=== PATIENT | female | born 1970 | race Caucasian/White ===

== ENCOUNTER → 2019-06-13 07:36 | Outpatient (CLI) | payer OTHER, SELFPAY ==
--- NOTE | 2019-06-13 07:38 | DI.MG.S_ITS ---
BILATERAL DIGITAL SCREENING MAMMOGRAM 3D/2D WITH CAD: 06/13/2019 CLINICAL: Routine screening. Comparison is made to exams dated: 01/10/2017 mammogram, 12/16/2015 mammogram, 12/09/2015 mammogram - [facility], 01/03/2018 mammogram, and 12/15/2017 mammogram - [facility]. There are scattered fibroglandular elements in both breasts. Current study was also evaluated with a Computer Aided Detection (CAD) system. There are grouped punctate calcifications in the superior medial right breast at middle to posterior depth which are stable to comparison exams dating back to 01/10/17, consistent with benignity. No significant masses, calcifications, or other findings are seen in either breast. There has been no significant interval change. IMPRESSION: There is no mammographic evidence of malignancy. A 1 year screening mammogram is recommended. This exam was interpreted at Station ID: [id number]. NOTE: For mammograms, a report in lay terms will be sent to the patient. Approximately 15% of breast malignancies will not be visualized mammographically. In the management of a palpable breast mass, a negative mammogram must not discourage biopsy of a clinically suspicious lesion. Electronically Signed By: Asif Kidd M.D. ecl/:06/14/2019 08:12:48 letter sent: Normal Exam ACR BI-RADS Category 2: Benign Finding(s) 3342F
[2019-06-13 08:53] LABS: Add Manual Diff / Slide Review NO; Basophils Absolute Auto 0 /uL (0-100); Basophils Percent Auto 0.5 % (0-2); Eosinophils Absolute Auto 100 /uL (0-450); Hematocrit 37.9 % (36-46); Hemoglobin 12.7 g/dL (12.0-16.0); Lymphocytes Absolute Auto 1900 /uL (1100-4500); Lymphocytes Percent Auto 33.8 % (25-40); Mean Corpuscular HGB Conc 33.5 % (30-36); Mean Corpuscular Hemoglobin 30.3 PG (26-34); Mean Corpuscular Volume 90.5 fL (80-100); Monocytes Absolute Auto 700 /uL (0-900); Monocytes Percent Auto 11.8 % (3-14); Neutrophils Absolute Auto 2900 /uL (1500-7000); Neutrophils Percent Auto 51.9 % (50-75); Platelet Count 253 X10^3/uL (150-400); Red Blood Cell Count 4.18 X10^6/uL (4.0-5.2); Red Cell Distribution Width 13.3 % (11.6-14.8); White Blood Cell Count 5.6 X10^3/uL (4.5-11.0)
[2019-06-13 09:20] LABS: Alanine Aminotransferase 16 IU/L (9-52); Albumin 4.2 g/dL (3.5-5.0); Albumin Globulin Ratio 1.3 (1.0-2.8); Alkaline Phosphatase 42 U/L (38-126); Aspartate Aminotransferase 22 IU/L (14-36); Bilirubin Total 0.5 mg/dL (0.2-1.3); Blood Urea Nitrogen 14 mg/dL (7-17); Calcium 9.8 mg/dL (8.4-10.2); Carbon Dioxide 29 mmol/L (22-32); Chloride 101 mmol/L (98-107); Cholesterol 178 mg/dL (140-199); Estimated Glomerular Filt Rate > 60.0 mL/min (>60); Globulin 3.3 g/dL (1.7-4.1); Glucose 103 mg/dL (70-100); HDL Cholesterol 39 mg/dL (40-60); HEMOLYSIS < 15 (0-50); LDL Cholesterol Calculated 114 mg/dL (<100); Potassium 4.4 mmol/L (3.4-5.1); Sodium 140 mmol/L (137-145); Total Protein 7.5 g/dL (6.3-8.2); Triglycerides 127 mg/dL (35-150)
[2019-06-13 09:52] LABS: Thyroid Stimulating Hormone 3.73 uIU/mL (0.47-4.68)
[2019-06-13 10:20] LABS: Appearance Urine UA CLEAR; Bilirubin Urine UA NEGATIVE (NEGATIVE); Color Urine UA YELLOW; Glucose Urine UA NEGATIVE (Negative); Ketones Urine UA NEGATIVE (NEGATIVE); Leukocyte Esterase Urine UA NEGATIVE (NEGATIVE); Nitrite Urine UA NEGATIVE (Negative); Occult Blood Urine UA NEGATIVE (Negative); Protein Urine UA NEGATIVE (Negative); Specific Gravity Urine UA <=1.005 (1.000-1.035); Urobilinogen Urine UA 0.2 E.U./dL (0.2); pH Urine UA 6.5 (4.5-8.0)
== END ==
PROVIDERS: Visit Provider Family Medicine
DX: Z12.31 Encounter for screening mammogram for malignant neoplasm of breast (principal); Z13.220 Encounter for screening for lipoid disorders; Z51.81 Encounter for therapeutic drug level monitoring
CPT/HCPCS: 36415; 77063; 77067; 80053; 80061; 81003; 84443; 85025

== ENCOUNTER → 2021-01-05 07:35 | Outpatient (ROUT) | payer OTHER, SELFPAY ==
[2021-01-05 08:33] LABS: Estimated Glomerular Filt Rate > 60.0 mL/min (>60)
== END ==
PROVIDERS: PCP Family Medicine; Visit Provider Physician Assistant
DX: L70.0 Acne vulgaris (principal); D22.5 Melanocytic nevi of trunk; L82.1 Other seborrheic keratosis; L81.4 Other melanin hyperpigmentation; D18.01 Hemangioma of skin and subcutaneous tissue
CPT/HCPCS: 82565

== ENCOUNTER → 2021-02-12 14:50 | Outpatient (CLI) | payer OTHER, SELFPAY ==
--- NOTE | 2021-02-12 14:51 | DI.MG.S_ITS ---
BILATERAL DIGITAL SCREENING MAMMOGRAM 3D/2D WITH CAD: 02/12/2021 CLINICAL: Routine screening. Comparison is made to exams dated: 06/13/2019 mammogram - [facility], 01/03/2018 mammogram, 12/15/2017 mammogram - [facility], and 01/10/2017 mammogram - [facility]. There are scattered fibroglandular elements in both breasts. Current study was also evaluated with a Computer Aided Detection (CAD) system. There are benign calcifications in the right breast. No significant masses, calcifications, or other findings are seen in either breast. There has been no significant interval change. IMPRESSION: BENIGN There is no mammographic evidence of malignancy. A 1 year screening mammogram is recommended. This exam was interpreted at Station ID: [id number]. NOTE: For mammograms, a report in lay terms will be sent to the patient. Approximately 15% of breast malignancies will not be visualized mammographically. In the management of a palpable breast mass, a negative mammogram must not discourage biopsy of a clinically suspicious lesion. Electronically Signed By: Hilton Hoffmann M.D., jr/yoko:02/12/2021 16:26:59 letter sent: Normal Exam ACR BI-RADS Category 2: Benign Finding(s) 3342F
== END ==
PROVIDERS: PCP Family Medicine; Referring Provider Obstetrics & Gynecology; Visit Provider Obstetrics & Gynecology
DX: Z12.31 Encounter for screening mammogram for malignant neoplasm of breast (principal)
CPT/HCPCS: 77063; 77067

== ENCOUNTER → 2022-01-26 09:15 | Outpatient (CLI) | payer OTHER, SELFPAY ==
--- NOTE | 2022-01-26 | DI.RAD.S_ITS ---
PROCEDURE: FL UPPER GI W AIR INDICATIONS: PROGRESSIVE GERD COMPARISON: None. 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 No suspicious abdominal calcifications. Visualized solid organ contours appear normal. Bony structures appear unremarkable. Esophagus: Esophageal mucosa is normal on air-contrast views. On single-contrast views, there is normal esophageal peristalsis. No strictures, extrinsic mass effects, or diverticula. No hiatal hernia. Gastroesophageal reflux was noted during the study which occurred without provocative maneuvers. A few, small tertiary contraction waves noted in the distal esophagus. There is normal transit of a calibrated barium tablet through the esophagus. Stomach: The stomach is normally distensible, with normal rugal fold thickness. No mucosal masses or ulcers. Pylorus and duodenal bulb appear normal in morphology. Duodenal folds are normal in thickness as well. 2.6 centimeter diverticulum involving the medial margin of the 2nd portion the duodenum. IMPRESSION: 1. Mild distal esophageal dysmotility. 2. Gastroesophageal reflux. 3. Small duodenal diverticulum. Dictated by: Sayra Peter MD, PhD on 01/26/2022 at 10:35 Approved by: Sayra Peter MD, PhD on 01/26/2022 at 10:37
--- NOTE | 2022-01-26 09:16 | DI.RAD.S_ITS ---
PROCEDURE: XR CHEST 2V INDICATIONS: granuloma right lung TECHNIQUE: 2 views of the chest were acquired. COMPARISON: [facility], , CHEST 2 VIEW, 06/16/2017, 18:34. FINDINGS: Surgical changes and devices: None. Lungs and pleura: Redemonstrated calcified granuloma in the right upper lung zone. No consolidation, pleural effusions or pneumothorax. Mediastinum: Mediastinal contours are normal. Heart size is normal. Bones and chest wall: No suspicious bony abnormalities. Soft tissues appear unremarkable. IMPRESSION: No acute cardiopulmonary abnormality. Dictated by: Gerald Leonard M.D. on 01/26/2022 at 10:45 Approved by: Gerald Leonard M.D. on 01/26/2022 at 10:46
== END ==
PROVIDERS: PCP Family Medicine; Referring Provider Family Medicine; Visit Provider Family Medicine
DX: R93.89 Abnormal findings on diagnostic imaging of other specified body structures (principal); K21.00 Gastro-esophageal reflux disease with esophagitis, without bleeding; K22.4 Dyskinesia of esophagus; N32.3 Diverticulum of bladder; J98.4 Other disorders of lung
CPT/HCPCS: 71046; 74240; 74246; 74248

== ENCOUNTER → 2022-04-20 12:59 | Outpatient (CLI) | payer OTHER, SELFPAY ==
[2022-04-20 14:42] LABS: COVID19 -Nasal RAPID Negative (Negative)
== END ==
PROVIDERS: PCP Family Medicine; Visit Provider Surgery
DX: Z20.822 Contact with and (suspected) exposure to COVID-19 (principal); Z01.812 Encounter for preprocedural laboratory examination
CPT/HCPCS: 87635; C9803

== ENCOUNTER 2022-04-21 10:26 | Day surgery (SDC) | payer OTHER, SELFPAY ==
[2022-04-21 10:55] VITALS: BMI 31.8
[2022-04-21 11:05] VITALS: BP 138/90; PULSE 92; RESP 16; TEMP 36.7; O2SAT 96
[2022-04-21] MEDS: LACTATED RINGERS 1,000 ML 42 ML IV (11:05)
--- NOTE | 2022-04-21 11:16 | PM.HP.1 ---
History of Present Illness History of Present Illness Date Patient Seen: 04/21/22 Time Patient Seen: 11:16 Chief complaint: SDC Narrative: 51-year-old woman here for colonoscopy for colon cancer screening. She has never had one before. She is no known family history of colon cancer. Patient History Medical History (Updated 04/21/22 @ 11:16 by Espinoza Flynn MD) Contact dermatitis GERD (gastroesophageal reflux disease) Granulomatous lung disease Preventative health care Tick bite (01/2020) Surgical History History of bilateral salpingo-oophorectomy (BSO) Status post appendectomy Status post endometrial ablation Status post laparoscopic cholecystectomy Status post tonsillectomy and adenoidectomy Family & Social History Family History Father Heart disease Mother Age: 76 Hypertension High cholesterol Grandfather Heart disease Grandmother Heart disease Sister Age: 56 High cholesterol Social History: household members spouse Tobacco & Substance use: Smoking Status Never smoker alcohol intake current alcohol intake frequency a few times a week Substance Use Type does not use Meds Home Medications and Allergies Home Medications Medication Instructions Recorded Confirmed Type aspirin 81 mg tablet,delayed 81 mg PO DAILY 07/26/21 04/21/22 History release pantoprazole 40 mg tablet,delayed 40 mg PO DAILY #90 tabs 11/09/21 04/21/22 Rx release hydroxyzine HCl 25 mg tablet 12.5 mg PO BEDTIME 02/11/22 04/21/22 History estradiol-norethindrone acet 1 1 tab PO DAILY 04/21/22 04/21/22 History mg-0.5 mg tablet loratadine 10 mg tablet 10 mg PO DAILY PRN Allergic 04/21/22 04/21/22 History Reaction Allergies Allergy/AdvReac Type Severity Reaction Status Date / Time hydrocodone [HYDROCODONE] Allergy Severe (FROM Verified 04/21/22 10:48 VICODIN) ITCHING benzoyl peroxide Allergy Unknown SWELLING Verified 04/21/22 10:48 [BENZOYL PEROXIDE] Exam Vital Signs (past 8 hours): - 04/21/22 11:05 Temperature 98.1 F Pulse Rate 92 H Respiratory Rate 16 Blood Pressure 138/90 Pulse Oximetry 96 Oxygen Delivery Method Room Air Oxygen Delivery Method Room Air Const General: healthy appearing Chest Chest: normal inspection of the chest Assessment & Plan Assessment and plan (1) Colon cancer screening: Status: Acute Plan 51-year-old woman here for colon cancer screening. We reviewed the risks and benefits of colonoscopy and she would like to proceed. Time Spent With Patient Critical Care time: I spent a total of [] minutes of critical care time on this patient's care today; this time is exclusive of procedural time.
[2022-04-21] MEDS: MIDAZOLAM 5 MG/5 ML VIAL IV ×2 (11:19→11:44)
--- NOTE | 2022-04-21 11:46 | PM.OP.COLON ---
Operative Date/Time/Diagnoses Date of procedure: 04/21/22 Time of procedure: 11:46 Pre-op diagnosis: Colon cancer screening Post-op diagnosis: same Procedure & Clinicians Study performed: Colonoscopy Same procedure as scheduled: Yes Surgeon: Espinoza Flynn Procedure Notes Procedure in detail: Surgeon: Espinoza Flynn MD Procedure: The patient was brought to the endoscopy suite, placed in left lateral decubitus position. The patient was connected to monitoring devices. A time-out was performed. Sedation was administered. Once the patient was adequately sedated, a digital rectal exam was performed and was normal. The scope was then inserted and advanced to the cecum where the appendiceal orifice was identified and photographed. The scope was then slowly withdrawn over greater than 6 minutes. The mucosa was thoroughly inspected. No polyps were noted. The scope was retroflexed in the rectum. There were some mild internal hemorrhoids but no other abnormalities. The scope was straightened and removed. The patient was awakened and brought to recovery. Versed: 6 mg Fentanyl: 150 mcg EBL: 0 Findings: Normal colon Scope withdrawal time: 6 Sedation minutes: 17 Post-procedure Recommendations: Colonoscopy in 10 years Disposition: PACU
[2022-04-21] MEDS: fentaNYL 250 MCG/5 ML INJ 175 MCG IV (11:47)
[2022-04-21 11:50] VITALS: BP 110/75; PULSE 88; RESP 15; TEMP 36.7; O2SAT 98
[2022-04-21 11:55] VITALS: BP 115/66; PULSE 76; RESP 16; O2SAT 96
[2022-04-21 12:00] VITALS: BP 115/66; PULSE 84; RESP 16; O2SAT 100
[2022-04-21 12:05] VITALS: BP 107/68; PULSE 74; RESP 16; O2SAT 100
--- NOTE | 2022-04-21 12:07 | SUR.PHASEII ---
1200: Pt A&Ox4, denies any distress and ready to discharge home. Discharge instructions reviewed with wit patient and time allowed for questions. Pt dressed independently and left unit via w/c with all personal belongings to ER exit where spouse will transport pt home.
--- NOTE | 2022-04-21 12:13 | SUR.PHASEII ---
04/21/[id number] met criteria. iv out. dressed self. pt has cellphone and states all belongings.Discharged via wheelchair to ride escorted by volunteer .
== END 2022-04-21 12:12 | disposition home or self-care (01) ==
PROVIDERS: PCP Family Medicine; Referring Provider Surgery; Visit Provider Surgery
PROC: 0DJD8ZZ Inspection of Lower Intestinal Tract, Via Natural or Artificial Opening Endoscopic (ICD-10-PCS; CPT 45378; principal; 2022-04-21 11:30)
DX: Z12.11 Encounter for screening for malignant neoplasm of colon (principal); K64.8 Other hemorrhoids
CPT/HCPCS: 45378; 99152; J2250; J3010

== ENCOUNTER → 2022-10-25 16:29 | Outpatient (CLI) | payer OTHER, SELFPAY ==
[2022-10-25 16:58] LABS: Hemoglobin 12.1 g/dL (12.0-16.0); Mean Corpuscular HGB Conc 34.5 % (30-36); Mean Corpuscular Hemoglobin 30.2 PG (26-34); Mean Corpuscular Volume 87.6 fL (80-100); Platelet Count 287 X10^3/uL (150-400); Red Blood Cell Count 3.99 X10^6/uL (4.0-5.2); Red Cell Distribution Width 13.9 % (11.6-14.8); White Blood Cell Count 8.6 X10^3/uL (4.5-11.0)
[2022-10-25 17:05] LABS: Appearance Urine UA CLEAR; Bilirubin Urine UA NEGATIVE (NEGATIVE); Color Urine UA YELLOW; Glucose Urine UA NEGATIVE (Negative); Ketones Urine UA NEGATIVE (NEGATIVE); Leukocyte Esterase Urine UA NEGATIVE (NEGATIVE); Nitrite Urine UA NEGATIVE (Negative); Occult Blood Urine UA TRACE-INTACT (Negative); Protein Urine UA NEGATIVE (Negative); Urobilinogen Urine UA 0.2 E.U./dL (0.2)
[2022-10-25 17:13] LABS: Bacteria Urine None Seen; RBC Urine 0-1/HPF (0-5/HPF); Squamous Epithelial Cell Urine 0-1 /HPF (0-5/HPF); WBC Urine 0-1/HPF (0-5/HPF)
[2022-10-25 17:17] LABS: BUN Creatinine Ratio 18.5 (6-22); Blood Urea Nitrogen 12 mg/dL (7-17); Calcium 8.9 mg/dL (8.4-10.2); Carbon Dioxide 26 mmol/L (22-32); Chloride 103 mmol/L (98-107); Estimated Glomerular Filt Rate > 60 mL/min (>60); Glucose 91 mg/dL (70-100); HEMOLYSIS < 15 (0-50); Potassium 4.3 mmol/L (3.4-5.1); Sodium 135 mmol/L (137-145)
== END ==
PROVIDERS: PCP Family Medicine; Referring Provider Nurse Practitioner Family; Visit Provider Nurse Practitioner Family
DX: R10.32 Left lower quadrant pain (principal); Z00.00 Encounter for general adult medical examination without abnormal findings; R31.9 Hematuria, unspecified
CPT/HCPCS: 36415; 80048; 81001; 85027; 87086

== ENCOUNTER → 2022-11-05 09:53 | Outpatient (CLI) | payer OTHER, SELFPAY ==
--- NOTE | 2022-11-05 09:54 | DI.MG.S_ITS ---
BILATERAL DIGITAL SCREENING MAMMOGRAM 3D/2D WITH CAD: 11/05/2022 CLINICAL: Routine screening. Comparison is made to exams dated: 02/12/2021 mammogram, 06/13/2019 mammogram - [facility], and 01/03/2018 mammogram - [facility]. There are scattered areas of fibroglandular density in both breasts (category b / 25%-50% glandular tissue). Current study was also evaluated with a Computer Aided Detection (CAD) system. There are benign calcifications in both breasts. No significant masses, calcifications, or other findings are seen in either breast. There has been no significant interval change. IMPRESSION: BENIGN There is no mammographic evidence of malignancy. A 1 year screening mammogram is recommended. Based on the Tyrer Cuzick model (a risk assessment model) the patient's lifetime risk is 4.8% and her 10 year risk is 1.4%. According to the ACR, ACS, and NCCN guidelines, an annual breast MRI exam along with mammogram is recommended if the patient's lifetime risk is 20% or greater. This exam was interpreted at Station ID: [id number]. NOTE: For mammograms, a report in lay terms will be sent to the patient. Approximately 15% of breast malignancies will not be visualized mammographically. In the management of a palpable breast mass, a negative mammogram must not discourage biopsy of a clinically suspicious lesion. Electronically Signed By: Rik burns/yoko:11/07/2022 02:28:20 letter sent: Normal Exam ACR BI-RADS Category 2: Benign Finding(s) 3342F
== END ==
PROVIDERS: PCP Family Medicine; Referring Provider Family Medicine; Visit Provider Family Medicine
DX: Z12.31 Encounter for screening mammogram for malignant neoplasm of breast (principal)
CPT/HCPCS: 77063; 77067

== ENCOUNTER → 2022-11-24 07:40 | Outpatient (CLI) | payer OTHER, SELFPAY ==
--- NOTE | 2022-11-24 07:45 | DI.US.S_ITS ---
PROCEDURE: US ABDOMEN COMPLETE INDICATIONS: LLQ PAIN HELD URINE FOR TOO LONG TECHNIQUE: Real-time scanning was performed of the abdominal and retroperitoneal organs, with image documentation. COMPARISON: None. FINDINGS: Liver: The liver is normal size and mildly diffusely hyperechoic in echotexture. No discrete mass. Gallbladder: The gallbladder is surgically absent. Biliary ducts: Intrahepatic bile ducts are non-dilated. Extrahepatic bile duct caliber measures 7.5 mm. Normal is 6-7 mm or less in diameter, or 10 mm or less post-cholecystectomy. Pancreas: The proximal pancreas is within normal limits. The tail is obscured by bowel gas. Spleen: Spleen is normal in size and homogeneous in echotexture. Kidneys: Kidneys are normal in size and echotexture. Right kidney measures 9.8 cm long; left kidney measures 8.9 cm long. No hydronephrosis or nephrolithiasis. No solid masses. Aorta: Visualized aorta is normal in caliber at less than 3 cm. Iliacs: Proximal common iliac arteries are normal in caliber at less than 2.5 cm. IVC: Intrahepatic inferior vena cava is patent. Miscellaneous: No free abdominal fluid. IMPRESSION: 1. Mild hepatic steatosis or other intrinsic liver disease. Correlate with LFTs to determine clinical significance. 2. Cholecystectomy. 3. No evidence of hydronephrosis. Dictated by: Rosa Torres M.D. on 11/24/2022 at 10:13 Approved by: Rosa Torres M.D. on 11/24/2022 at 10:16
--- NOTE | 2022-11-24 07:45 | DI.US.S_ITS ---
PROCEDURE: US PELVIC COMPLETE INDICATIONS: LLQ PAIN HX OF RIGHT OVARY REMOVAL TECHNIQUE: Real-time scanning was performed of the pelvic organs, with image documentation. Additional endovaginal scanning was necessary due to incomplete visualization of the adnexal and endometrial structures by transabdominal scanning. COMPARISON: [facility], US, PELVIC COMPLETE, 12/15/2011, 17:03. FINDINGS: Uterus: Uterus is anteverted and normal in size at 8.1 x 3.6 x 4.5 cm. The cervix contains a few small nabothian cysts. The myometrium is heterogeneous and the endometrial margin is indistinct. The endometrium is normal thickness at 5.2 mm. No myometrial masses. There is mildly prominent periuterine vasculature. Ovaries: The right ovary is surgically absent. The left ovary measures 1.7 x 1.3 x 1.9 cm for a volume of 2.3 mL. Normal vascular flow in the left ovary. No discrete mass or dominant follicle. No paraovarian fluid. Other: No pathologic free abdominal or pelvic fluid. IMPRESSION: 1. Normal appearing left ovary. 2. Diffusely heterogeneous uterine myometrium with indistinct endometrium. Morphology is suspicious for adenomyosis. MR imaging of the pelvis would be diagnostic if this would be clinically relevant. 3. Mildly prominent uterine vasculature raising the possibility of pelvic congestion syndrome. We strive to produce accurate, complete, and clear reports of imaging services. To assist us in improving patient care, this report was composed using standard report templates and voice recognition software. Therefore, it may contain abnormal punctuation, insertions and/or omissions. Occasional wrong-word or sound-alike substitutions may occur. Though we review the report and make efforts to correct it, we do recommend that the report be read carefully in proper context to recognize any text inaccuracies. Dictated by: Rosa Torres M.D. on 11/24/2022 at 10:09 Approved by: Rosa Torres M.D. on 11/24/2022 at 10:13
== END ==
PROVIDERS: PCP Family Medicine; Referring Provider Nurse Practitioner Family; Visit Provider Nurse Practitioner Family
DX: R10.32 Left lower quadrant pain (principal); Z90.721 Acquired absence of ovaries, unilateral; Z90.49 Acquired absence of other specified parts of digestive tract
CPT/HCPCS: 76700; 76830; 76856; 93976

== ENCOUNTER → 2022-11-30 09:19 | Outpatient (CLI) | payer OTHER, SELFPAY ==
[2022-11-30 11:41] LABS: Alanine Aminotransferase 39 IU/L (<35); Albumin 4.3 g/dL (3.5-5.0); Albumin Globulin Ratio 1.3 (1.0-2.8); Alkaline Phosphatase 60 U/L (38-126); Aspartate Aminotransferase 29 IU/L (14-36); Bilirubin Total 0.5 mg/dL (0.2-1.3); Bilirubin Unconjugated 0.1 mg/dL (0.0-1.1); Globulin 3.2 g/dL (1.7-4.1); HEMOLYSIS < 15 (0-50); Total Protein 7.5 g/dL (6.3-8.2)
[2022-11-30 12:17] LABS: TSH w/ Reflex to FT4 3.65 uIU/mL (0.47-4.68)
== END ==
PROVIDERS: PCP Family Medicine; Referring Provider Nurse Practitioner Family; Visit Provider Nurse Practitioner Family
DX: R93.2 Abnormal findings on diagnostic imaging of liver and biliary tract (principal); R30.9 Painful micturition, unspecified
CPT/HCPCS: 36415; 80076; 84443; 87086

== ENCOUNTER → 2023-11-30 08:09 | Outpatient (CLI) | payer OTHER, SELFPAY ==
[2023-11-30 08:27] LABS: Add Manual Diff / Slide Review NO; Basophils Absolute Auto 0 /uL (0-100); Basophils Percent Auto 0.7 % (0-2); Eosinophils Absolute Auto 100 /uL (0-450); Eosinophils Percent Auto 2.1 % (2-4); Hematocrit 39.3 % (36-46); Hemoglobin 13.1 g/dL (12.0-16.0); Lymphocytes Absolute Auto 1900 /uL (1100-4500); Lymphocytes Percent Auto 29.6 % (25-40); Mean Corpuscular HGB Conc 33.5 % (30-36); Mean Corpuscular Hemoglobin 29.8 PG (26-34); Monocytes Absolute Auto 800 /uL (0-900); Monocytes Percent Auto 12.6 % (3-14); Neutrophils Absolute Auto 3600 /uL (1500-7000); Platelet Count 272 X10^3/uL (150-400); Red Blood Cell Count 4.41 X10^6/uL (4.0-5.2); Red Cell Distribution Width 14.4 % (11.6-14.8); White Blood Cell Count 6.5 X10^3/uL (4.5-11.0)
[2023-11-30 09:23] LABS: Alanine Aminotransferase 22 IU/L (<35); Albumin 4.3 g/dL (3.5-5.0); Albumin Globulin Ratio 1.4 (1.0-2.8); Alkaline Phosphatase 64 U/L (38-126); Aspartate Aminotransferase 23 IU/L (14-36); BUN Creatinine Ratio 22.2 (6-22); Bilirubin Total 0.6 mg/dL (0.2-1.3); Blood Urea Nitrogen 14 mg/dL (7-17); Calcium 9.3 mg/dL (8.4-10.2); Carbon Dioxide 25 mmol/L (22-32); Chloride 104 mmol/L (98-107); Cholesterol 222 mg/dL (140-199); Estimated Glomerular Filt Rate > 60 mL/min (>60); Globulin 3.1 g/dL (1.7-4.1); Glucose 109 mg/dL (70-100); HDL Cholesterol 49 mg/dL (40-60); HEMOLYSIS < 15 (0-50); LDL Cholesterol Calculated 147 mg/dL (<100); Potassium 4.2 mmol/L (3.4-5.1); Sodium 138 mmol/L (137-145); Total Protein 7.4 g/dL (6.3-8.2); Triglycerides 132 mg/dL (35-150)
[2023-11-30 09:52] LABS: TSH w/ Reflex to FT4 4.72 uIU/mL (0.47-4.68)
[2023-11-30 10:42] LABS: Free T4, Direct Thyroxine 0.99 ng/dL (0.78-2.19)
== END ==
PROVIDERS: PCP Family Medicine; Referring Provider Family Medicine; Visit Provider Family Medicine
DX: K21.9 Gastro-esophageal reflux disease without esophagitis (principal); Z79.890 Hormone replacement therapy; D64.9 Anemia, unspecified; E78.5 Hyperlipidemia, unspecified
CPT/HCPCS: 36415; 80053; 80061; 84439; 84443; 85025

== ENCOUNTER 2024-06-12 17:59 | Emergency (ER) | payer OTHER, SELFPAY ==
[2024-06-12] VITALS (9 sets, daily range): BP systolic 132–164; BP diastolic 84–102; PULSE 69–81; RESP 16–21; TEMP 36.9; O2SAT 95–98; BMI 29.8
--- NOTE | 2024-06-12 18:04 | DI.RAD.S_ITS ---
PROCEDURE: XR CHEST 1V INDICATIONS: chest pain TECHNIQUE: One view of the chest was acquired. COMPARISON: [facility], CR, XR CHEST 2V, 01/26/2022, 9:16. FINDINGS: Surgical changes and devices: None. Lungs and pleura: Lungs are clear. No pleural effusions or pneumothorax. Mediastinum: Mediastinal contours appear normal. Heart size is normal. Bones and chest wall: No suspicious bony lesions. Overlying soft tissues appear unremarkable. IMPRESSION: No acute cardiopulmonary pathology. Dictated by: Andry Blanco M.D. on 06/12/2024 at 19:07 Approved by: Andry Blanco M.D. on 06/12/2024 at 19:07
--- NOTE | 2024-06-12 18:08 | EKG_ITS ---
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
[2024-06-12] MEDS: ASPIRIN 81 MG CHEW TAB 324 MG PO (18:22)
--- NOTE | 2024-06-12 18:22 | ED_ITS ---
HPI - Chest Pain General Chief Complaint: Chest Pain Stated Complaint: chest pain Time Seen by Provider: 06/12/24 18:06 Source: patient and family Mode of arrival: Family Vehicle Limitations: no limitations History of Present Illness HPI narrative: Patient is a 53-year-old female who is here for evaluation of approximately 24 hours of left-sided chest discomfort. She states that the discomfort when it comes on seems to last for seconds and then goes away. Not associated with shortness of breath. Does not feel like it is associated with movement or palpitations or worse with palpation. No nausea vomiting. Has never had symptoms like this before. She has a history of hypothyroidism and high cholesterol. Has never had heart attack. No fevers. The time my evaluation she was not having symptoms. No skin changes. Related Data Home Medications Medication Instructions Recorded Confirmed aspirin 81 mg tablet,delayed 81 mg PO DAILY 07/26/21 09/28/23 release omalizumab 150 mg subcutaneous 300 mg SUBCUT Q4W 10/25/22 09/28/23 solution (Xolair) Previous Rx's Medication Instructions Recorded pantoprazole 20 mg tablet,delayed 20 mg PO DAILY #90 tabs 09/28/23 release estradiol-norethindrone acet 1 1 tab PO DAILY #84 tabs 10/17/23 mg-0.5 mg tablet levothyroxine 50 mcg tablet 50 mcg PO DAILY #90 tabs 12/20/23 atorvastatin 10 mg tablet 10 mg PO BEDTIME #90 tabs 12/22/23 Allergies Allergy/AdvReac Type Severity Reaction Status Date / Time hydrocodone [HYDROCODONE] Allergy Severe (FROM Verified 06/12/24 18:21 VICODIN) ITCHING benzoyl peroxide Allergy Unknown SWELLING Verified 06/12/24 18:21 [BENZOYL PEROXIDE] Review of Systems Review of Systems ROS Unobtainable: All systems reviewed & are unremarkable except as noted in HPI and below Patient History Medical History Hypothyroidism Hyperlipidemia Hyperglycemia Anemia Preventative health care Granulomatous lung disease GERD (gastroesophageal reflux disease) Tick bite (01/2020) Contact dermatitis Surgical History History of bilateral salpingo-oophorectomy (BSO) Status post appendectomy Status post tonsillectomy and adenoidectomy Status post laparoscopic cholecystectomy Status post endometrial ablation Family History Father Heart disease Mother Age: 78 Hypertension High cholesterol Grandfather Heart disease Grandmother Heart disease Sister Age: 58 High cholesterol Social History household members: spouse Smoking Status: Never smoker alcohol intake: current Smoking Status: Never smoker alcohol intake frequency: a few times a week Substance Use Type: does not use Exam Initial Vital Signs Initial Vital Signs: Vital Signs Temperature 98.4 F 06/12/24 18:00 Pulse Rate 77 06/12/24 18:00 Respiratory Rate 16 06/12/24 18:00 Blood Pressure 162/96 H 06/12/24 18:00 Pulse Oximetry 98 06/12/24 18:00 Oxygen Delivery Method Room Air 06/12/24 18:00 Const General: cooperative, comfortable and No ill appearing HENMT Head: normal to inspection and normocephalic Chest Chest: No crepitus and No tenderness Resp Effort & Inspection: normal respiratory effort Auscultation: clear to auscultation bilaterally Cardio Rate: regular rate Rhythm: regular rhythm GI Inspection: normal to inspection and non-distended Skin General: no rashes or lesions noted Neuro General: patient alert, patient awake and moves all extremities Scores HEART Score Heart Score history: Slightly Suspicious Heart Score EKG: Normal Heart Score Age: 45-64 years old Heart Score risk factors: 1-2 risk factors Heart Score troponin: < or = to normal limit Heart Score Total: 2 Course Orders Ordered: ED Orders 06/12/24 18:04 XR chest 1V Stat EKG-12 Lead Stat 06/12/24 18:18 Complete Blood Count AUTO DIFF Stat Comprehensive Metabolic Panel Stat Lipase Stat Magnesium Stat NT-proBNP (BNP-Adult 18+) Stat PTT Partial Thromboplastin Celio Stat Prothrombin Time INR Stat Troponin & CK Cardiac Panel Stat 06/12/24 19:42 EKG-12 Lead Stat 06/12/24 20:20 Troponin & CK Cardiac Panel Stat Discontinued Medications Aspirin (Aspirin 81 Mg Chew Tab) 324 mg PO NOW ONE Stop: 06/12/24 18:05 Last Admin: 06/12/24 18:22 Dose: 324 mg Documented By: SB Vital Signs Vital signs: Vital Signs - 8 hr 06/12/24 18:00 06/12/24 18:11 06/12/24 18:11 Temperature 98.4 F Pulse Rate 77 81 Respiratory Rate 16 21 Blood Pressure 162/96 H 162/96 H Pulse Oximetry 98 98 Oxygen Delivery Method Room Air 06/12/24 18:17 06/12/24 18:17 06/12/24 18:30 Temperature Pulse Rate 78 77 Respiratory Rate 20 20 Blood Pressure 164/102 H Pulse Oximetry 98 97 Oxygen Delivery Method Room Air 06/12/24 18:30 06/12/24 19:00 06/12/24 19:00 Temperature Pulse Rate 72 Respiratory Rate 16 Blood Pressure 153/95 H 143/85 H Pulse Oximetry 95 Oxygen Delivery Method 06/12/24 19:30 06/12/24 19:30 06/12/24 20:00 Temperature Pulse Rate 69 70 Respiratory Rate 16 17 Blood Pressure 132/87 Pulse Oximetry 96 96 Oxygen Delivery Method Room Air Room Air 06/12/24 20:00 06/12/24 20:30 06/12/24 20:30 Temperature Pulse Rate 70 Respiratory Rate 18 Blood Pressure 146/85 H 139/84 Pulse Oximetry 97 Oxygen Delivery Method Room Air MDM - Chest Pain Lab Data Attestation: I reviewed the patient's lab results. 06/12/24 18:18 06/12/24 18:18 Labs: Lab Results 06/12/24 06/12/24 Range/Units 18:18 20:20 WBC 9.4 (4.5-11.0) X10^3/uL RBC 4.28 (4.0-5.2) X10^6/uL Hgb 13.1 (12.0-16.0) g/dL Hct 38.5 (36-46) % MCV 90.2 (80-100) fL MCH 30.5 (26-34) PG MCHC 33.9 (30-36) % RDW 13.9 (11.6-14.8) % Plt Count 273 (150-400) X10^3/uL Neut % (Auto) 60.3 (50-75) % Lymph % (Auto) 27.7 (25-40) % [place] % (Auto) 9.7 (3-14) % Eos % (Auto) 1.5 L (2-4) % Baso % (Auto) 0.8 (0-2) % Neut # (Auto) 5700 (4103-4704) /uL Lymph # (Auto) 2600 (2584-3039) /uL [place] # (Auto) 900 (0-900) /uL Eos # (Auto) 100 (0-450) /uL Baso # (Auto) 100 (0-100) /uL PT 11.9 (9.4-12.5) SECONDS INR 1.0 (0.9-1.3) APTT 33 (25.1-36.5) SECONDS Sodium 135 L (137-145) mmol/L Potassium 4.3 (3.4-5.1) mmol/L Chloride 101 (98-107) mmol/L Carbon Dioxide 27 (22-32) mmol/L BUN 15 (7-17) mg/dL Creatinine 0.68 (0.52-1.04) mg/dL Estimated GFR > 60 (>60) mL/min BUN/Creatinine Ratio 22.1 H (6-22) Glucose 103 H (70-100) mg/dL Calcium 9.3 (8.4-10.2) mg/dL Magnesium 2.0 (1.6-2.3) mg/dL Total Bilirubin 0.8 (0.2-1.3) mg/dL AST 30 (14-36) IU/L ALT 22 (<35) IU/L Alkaline Phosphatase 47 (38-126) U/L Total Creatine Kinase 87 74 (30-135) U/L Troponin I < 0.012 < 0.012 (0.01-0.034) ng/mL NT-Pro-B Natriuret Pep 33 (<125) pg/mL Total Protein 7.6 (6.3-8.2) g/dL Albumin 4.3 (3.5-5.0) g/dL Globulin 3.3 (1.7-4.1) g/dL Albumin/Globulin Ratio 1.3 (1.0-2.8) Lipase 86 (23-300) U/L Imaging Data Chest x-ray: Radiologist's Impression: PROCEDURE: XR CHEST 1V INDICATIONS: chest pain TECHNIQUE: One view of the chest was acquired. COMPARISON: [facility], CR, XR CHEST 2V, 01/26/2022, 9:16. FINDINGS: Surgical changes and devices: None. Lungs and pleura: Lungs are clear. No pleural effusions or pneumothorax. Mediastinum: Mediastinal contours appear normal. Heart size is normal. Bones and chest wall: No suspicious bony lesions. Overlying soft tissues appear unremarkable. IMPRESSION: No acute cardiopulmonary pathology. ECG Data Attestation: I personally reviewed and interpreted this ECG as follows: Interpretation: Sinus rhythm Ventricular rate of 93 Normal axis Normal QRS Normal QTC No ST T wave changes Repeat EKG Sinus rhythm Ventricular rate is 68 Normal axis Normal QRS Normal QTC No ST T wave changes MDM Narrative Medical decision making narrative: Patient has had 2- troponins. Two EKGs that are unremarkable. Chest x-ray is unremarkable. Low risk heart score. I had a discussion with her regarding her symptoms. She understands lack of definitive diagnosis however she was low risk for ACS. I do recommend that she contact her primary care doctor to discuss the indications for stress testing. Given her workup here today this can be done as an outpatient. Will discharge patient home with strict return precautions. She expressed understanding and agreement with plan. Discharge Plan Departure Patient Disposition: Home Clinical Impression: Atypical chest pain Instructions: DI for Atypical Chest Pain Activity Restrictions/Additional Instructions: Recommend that you contact your primary care doctor to discuss the indications for an outpatient stress test. Continue to take all of your medications as directed. Return to the emergency department for new or worsening symptoms. Prescriptions: No Action estradiol-norethindrone acet 1-0.5 mg tablet 1 tab PO DAILY Qty: 84 3RF atorvastatin 10 mg tablet 10 mg PO BEDTIME Qty: 90 1RF Xolair 150 mg recon soln 300 mg SUBCUT Q4W Rx Instructions: requires multiple injection sites; do not exceed 150 mg per injection site levothyroxine 50 mcg tablet 50 mcg PO DAILY Qty: 90 1RF aspirin 81 mg tablet,delayed release (DR/EC) 81 mg PO DAILY pantoprazole 20 mg tablet,delayed release (DR/EC) 20 mg PO DAILY Qty: 90 3RF Referrals: Sivakumar Triana DO [Primary Care Provider] - Stand Alone Forms: Patient Portal/API
[2024-06-12 18:26] LABS: Add Manual Diff / Slide Review NO; Basophils Absolute Auto 100 /uL (0-100); Basophils Percent Auto 0.8 % (0-2); Eosinophils Absolute Auto 100 /uL (0-450); Eosinophils Percent Auto 1.5 % (2-4); Hematocrit 38.5 % (36-46); Hemoglobin 13.1 g/dL (12.0-16.0); Lymphocytes Absolute Auto 2600 /uL (1100-4500); Lymphocytes Percent Auto 27.7 % (25-40); Mean Corpuscular HGB Conc 33.9 % (30-36); Mean Corpuscular Hemoglobin 30.5 PG (26-34); Mean Corpuscular Volume 90.2 fL (80-100); Monocytes Absolute Auto 900 /uL (0-900); Monocytes Percent Auto 9.7 % (3-14); Neutrophils Absolute Auto 5700 /uL (1500-7000); Neutrophils Percent Auto 60.3 % (50-75); Platelet Count 273 X10^3/uL (150-400); Red Blood Cell Count 4.28 X10^6/uL (4.0-5.2); Red Cell Distribution Width 13.9 % (11.6-14.8); White Blood Cell Count 9.4 X10^3/uL (4.5-11.0)
[2024-06-12 18:33] LABS: Prothrombin Time 11.9 SECONDS (9.4-12.5)
[2024-06-12 18:35] LABS: PTT Partial Thromboplastin Tim 33 SECONDS (25.1-36.5)
[2024-06-12 19:18] LABS: Alanine Aminotransferase 22 IU/L (<35); Albumin 4.3 g/dL (3.5-5.0); Albumin Globulin Ratio 1.3 (1.0-2.8); Alkaline Phosphatase 47 U/L (38-126); Aspartate Aminotransferase 30 IU/L (14-36); BUN Creatinine Ratio 22.1 (6-22); Bilirubin Total 0.8 mg/dL (0.2-1.3); Blood Urea Nitrogen 15 mg/dL (7-17); Calcium 9.3 mg/dL (8.4-10.2); Carbon Dioxide 27 mmol/L (22-32); Chloride 101 mmol/L (98-107); Creatine Kinase 87 U/L (30-135); Estimated Glomerular Filt Rate > 60 mL/min (>60); Globulin 3.3 g/dL (1.7-4.1); Glucose 103 mg/dL (70-100); HEMOLYSIS 87 (0-50); Potassium 4.3 mmol/L (3.4-5.1); Sodium 135 mmol/L (137-145); Total Protein 7.6 g/dL (6.3-8.2)
[2024-06-12 19:23] LABS: Troponin I < 0.012 ng/mL (0.01-0.034)
[2024-06-12 19:24] LABS: Lipase 86 U/L (23-300)
[2024-06-12 19:25] LABS: NT-proBNP (BNP-Adult 18+) 33 pg/mL (<125)
--- NOTE | 2024-06-12 19:47 | EKG_ITS ---
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
[2024-06-12 20:39] LABS: Creatine Kinase 74 U/L (30-135)
[2024-06-12 20:53] LABS: Troponin I < 0.012 ng/mL (0.01-0.034)
== END 2024-06-12 21:24 | disposition home or self-care (01) ==
PROVIDERS: Emergency Provider Emergency Medicine; PCP Family Medicine
DX: R07.89 Other chest pain (principal)
CPT/HCPCS: 36415; 71045; 80053; 82550; 83690; 83735; 83880; 84484; 85025; 85610; 85730; 93005; 99284

== ENCOUNTER → 2024-06-20 08:14 | Outpatient (CLI) | payer OTHER, SELFPAY ==
[2024-06-20 08:42] LABS: Add Manual Diff / Slide Review NO; Basophils Absolute Auto 0 /uL (0-100); Basophils Percent Auto 0.5 % (0-2); Eosinophils Absolute Auto 200 /uL (0-450); Eosinophils Percent Auto 3.3 % (2-4); Hematocrit 37.5 % (36-46); Hemoglobin 12.7 g/dL (12.0-16.0); Lymphocytes Absolute Auto 2100 /uL (1100-4500); Lymphocytes Percent Auto 32.5 % (25-40); Mean Corpuscular Hemoglobin 30.6 PG (26-34); Mean Corpuscular Volume 90.1 fL (80-100); Monocytes Absolute Auto 700 /uL (0-900); Monocytes Percent Auto 10.9 % (3-14); Neutrophils Absolute Auto 3400 /uL (1500-7000); Neutrophils Percent Auto 52.8 % (50-75); Platelet Count 277 X10^3/uL (150-400); Red Blood Cell Count 4.16 X10^6/uL (4.0-5.2); Red Cell Distribution Width 13.4 % (11.6-14.8); White Blood Cell Count 6.5 X10^3/uL (4.5-11.0)
[2024-06-20 09:00] LABS: Alanine Aminotransferase 21 IU/L (<35); Albumin 4.1 g/dL (3.5-5.0); Albumin Globulin Ratio 1.5 (1.0-2.8); Alkaline Phosphatase 57 U/L (38-126); Aspartate Aminotransferase 23 IU/L (14-36); BUN Creatinine Ratio 19.2 (6-22); Bilirubin Total 0.7 mg/dL (0.2-1.3); Blood Urea Nitrogen 15 mg/dL (7-17); Carbon Dioxide 24 mmol/L (22-32); Chloride 106 mmol/L (98-107); Cholesterol 178 mg/dL (140-199); Estimated Glomerular Filt Rate > 60 mL/min (>60); Globulin 2.7 g/dL (1.7-4.1); Glucose 108 mg/dL (70-100); HDL Cholesterol 42 mg/dL (40-60); HEMOLYSIS < 15 (0-50); Iron 106 ug/dL (37-170); LDL Cholesterol Calculated 116 mg/dL (<100); Potassium 4.7 mmol/L (3.4-5.1); Sodium 137 mmol/L (137-145); Total Protein 6.8 g/dL (6.3-8.2); Triglycerides 102 mg/dL (35-150)
[2024-06-20 09:12] LABS: Percent Iron Saturation 40 % (15-50); Total Iron Binding Capacity 262 ug/dL (265-497); Transferrin 202 mg/dL (206-381)
[2024-06-20 09:18] LABS: Free T4, Direct Thyroxine 0.91 ng/dL (0.78-2.19)
[2024-06-20 09:32] LABS: Thyroid Stimulating Hormone 2.13 uIU/mL (0.47-4.68)
[2024-06-20 09:51] LABS: Vitamin B12 516 pg/mL (239-931)
[2024-06-20 10:02] LABS: Hemoglobin A1C% w Est Avg Glu 5.5 % (4.0-6.0)
== END ==
PROVIDERS: PCP Family Medicine; Referring Provider Family Medicine; Visit Provider Family Medicine
DX: E03.9 Hypothyroidism, unspecified (principal); E78.5 Hyperlipidemia, unspecified; R73.9 Hyperglycemia, unspecified; D64.9 Anemia, unspecified
CPT/HCPCS: 36415; 80053; 80061; 82607; 83036; 83540; 83550; 84439; 84443; 85025

== ENCOUNTER → 2025-09-20 09:38 | Outpatient (CLI) | payer OTHER, SELFPAY ==
--- NOTE | 2025-09-20 09:39 | DI.MG.S_ITS ---
MM screening mammo BI: 09/20/2025. BI-RADS: 2 CLINICAL: 54-year old female for bilateral screening mammogram. Tyrer-Cuzick lifetime risk of 6.5%. No personal or first-degree family history of breast cancer. PRIOR EXAMS 11/05/2022, 02/12/2021, 06/13/2019, 01/10/2017, MAMMOGRAPHY TECHNIQUE: 2D and 3D (tomosynthesis) digital mammographic views obtained, with additional images as needed for full coverage. Current study was also evaluated with a Computer Aided Detection (CAD) system. DENSITY C. The breasts are heterogeneously dense, which may obscure small masses. MAMMOGRAPHY FINDINGS Bilateral: Benign-appearing calcifications noted. There are no suspicious masses, calcifications, or other findings in the breast. IMPRESSION: * No evidence of malignancy with benign findings. RECOMMENDATIONS Bilateral * Annual screening mammography. OVERALL ASSESSMENT CATEGORY BI-RADS-2: Benign. The [employer] recommends annual screening mammography beginning at age 40 for women with average risk of breast cancer. ELECTRONICALLY SIGNED: Thierry Toro M.D. on 09/21/2025 at 09:08:51 PM PT Interpreting Station ID: [id number]
== END ==
LOC: MAMMO 09:38
PROVIDERS: PCP Family Medicine; Referring Provider Family Medicine; Visit Provider Family Medicine
DX: Z12.31 Encounter for screening mammogram for malignant neoplasm of breast (principal); R92.333 Mammographic heterogeneous density, bilateral breasts
CPT/HCPCS: 77063; 77067